=== PATIENT | female | born 1975 | race African-American/Black ===

== ENCOUNTER 2018-08-16 17:21 | Emergency (ER) | payer OTHER ==
[~2018-08-16] VITALS: Ht 157.5 cm; Wt 74.8 kg
[~2018-08-16 17:21] MED LIST: METFORMIN HCL1000 MG
== END 2018-08-16 18:58 | disposition home or self-care (01) ==
LOC: ER 17:21
DX: H66.92 Otitis media, unspecified, left ear (principal); R20.0 Anesthesia of skin